=== PATIENT | male | born 1960 | race Caucasian/White ===

== ENCOUNTER → 2020-01-17 12:58 | Outpatient (CLI) | payer BC, SELFPAY ==
--- NOTE | 2020-01-17 13:08 | CT_ITS ---
STUDY: CT ABDOMEN AND PELVIS WITH AND WITHOUT CONTRAST REASON FOR EXAM: Male, 59 years old. PT STATED HEMATURIA X2 WEEKS AGO, NOW RESOLVED RADIATION DOSAGE (If Supplied By Facility): CTDIvol = ( 22.59 ) mGy, DLP = ( 3780.65 ) mGycm TECHNIQUE: Transaxial images were obtained from the dome of the diaphragm to the symphysis pubis without oral contrast. IV 100mL Isovue-300 was administered. Sagittal and coronal images were reconstructed. Individualized dose optimization techniques were used for this CT. COMPARISON: None. FINDINGS: The visualized lung bases are unremarkable. The visualized portions of the heart are within normal limits. Normal liver. Normal gallbladder and extrahepatic biliary system. Normal spleen. Normal pancreas. Normal bilateral adrenal glands. Multiple right intrarenal calculi. The largest measures 5.7 mm and is in the lower pole. There is evidence of a 1.27 m cyst in the posterior upper pole of the right kidney. Multiple left nonobstructive intrarenal calculi. The largest measures 6.1 mm and lies in the upper pole. Pelvic left renal cysts are seen. Normal visualized stomach. Normal small intestine. There are multiple colonic diverticula consistent with diverticulosis. The appendix is visualized and appears normal. Normal abdominal aorta. Normal inferior vena cava. Normal retroperitoneum. Normal urinary bladder. Inhomogeneous enlargement of the seminal vesicles bilaterally. Clinical correlation is recommended. Central prostatic calcifications. There is a small umbilical hernia containing fat. There are mild degenerative changes of the visualized lumbar spine. CT/CT Abd/Pelvis W/WO Contrast IMPRESSION: Multiple bilateral nonobstructive intrarenal calculi. Small cyst in the upper pole of the left kidney as well as left parapelvic renal cysts. Marked enlargement of the seminal vesicles bilaterally. Clinical correlation is recommended. Electronically Signed: Ajay Peguero, at 14:36 EDT , Service support ,
== END ==
PROVIDERS: PCP Family Medicine; Referring Provider Family Medicine; Visit Provider Family Medicine
DX: R31.9 Hematuria, unspecified (principal)
CPT/HCPCS: 74178; Q9967